=== PATIENT | male | born 1970 | race African-American/Black ===

== ENCOUNTER → 2018-01-02 | Outpatient (CLI) | payer BC ==
--- NOTE | 2018-01-02 16:37 | KCIC ---
Five view lumbar spine series: Clinical indications: Low back pain for one month. Findings: Minimal rotatory levoscoliosis is seen. No fracture of the transverse processes is seen.No compression fracture is evident.No spondylolisthesis is seen.No discitis or osteolytic process is seen.No radiolucent pars defect is seen.No significant facet arthropathy is seen. Mild degenerative endplate spurring is seen throughout the lumbar spine. Impression: Mild degenerative lumbar spondylosis. Electronically signed by: Jh Phillips MD (01/02/2018 4:33 PM) [id number]
== END | disposition home or self-care (01) ==
LOC: KCIC 14:50
PROVIDERS: ATTEND Family Medicine
DX: M47.896 Other spondylosis, lumbar region (principal); M41.86 Other forms of scoliosis, lumbar region; M46.06 Spinal enthesopathy, lumbar region
CPT/HCPCS: 72110

== ENCOUNTER → 2018-10-04 | Outpatient (CLI) | payer BC ==
--- NOTE | 2018-10-04 13:47 | KCIC ---
DOPPLER CAROTID BILAT Clinical Indication: Dizziness. Hypertension.. Procedure: Pulsed wave and color-flow duplex imaging was utilized to evaluate the extracranial carotid arteries. Comparison: None. Findings: RIGHT SIDE: Mild atherosclerotic plaque on abbasi-scale images. Distal CCA peak systolic velocity 67 cm/sec. ICA peak systolic velocity 123 cm/sec. The right ICA/CCA ratio is 1.8. Flow within the right vertebral artery and right ECA is directed antegrade. LEFT SIDE: Mild atherosclerotic plaque on abbasi-scale images. Distal CCA peak systolic velocity 77 cm/sec. ICA peak systolic velocity 106 cm/sec. The left ICA/CCA ratio is 1.4. Flow within the left vertebral artery and left ECA is directed antegrade. Carotid legend: CCA = common carotid artery ICA = internal carotid artery ECA = external carotid artery IMPRESSION: Approximately 50 percent stenosis bilaterally. Electronically signed by: Danny Collado DO (10/04/2018 1:44 PM) [facility]
== END | disposition home or self-care (01) ==
LOC: KCIC US 12:14
PROVIDERS: ATTEND Family Medicine
DX: I65.23 Occlusion and stenosis of bilateral carotid arteries (principal); I10 Essential (primary) hypertension; E11.9 Type 2 diabetes mellitus without complications
CPT/HCPCS: 93880

== ENCOUNTER → 2019-10-16 | Outpatient (CLI) | payer BC ==
--- NOTE | 2019-10-16 16:36 | KCIC ---
PROCEDURE: KNEE RIGHT 3V CLINICAL INDICATION / HISTORY: Reason: ACUTE PAIN OF RT KNEE, FELT POP ANTERIORLY YESTERDAY GETTING OUT OF BED / Spl. Instructions: / History: . TECHNIQUE: AP, lateral, and tunnel views of the right knee. COMPARISON: None FINDINGS: The osseous structures are intact. The articular surfaces are notable for subtle undulation to the medial femoral condyle anteriorly. Otherwise they are smooth. The joint space is maintained. No intra-articular loose bodies. The alignment is within normal limits. The soft tissues are unremarkable. Trace joint effusion. No radio-opaque foreign bodies are identified. IMPRESSION: Findings suspicious for an impaction injury on the medial femoral condyle anteriorly with a trace right joint effusion. Consider correlation with MRI. Electronically signed by: Citlali Westbrook MD (10/16/2019 4:34 PM) [id number]
== END | disposition home or self-care (01) ==
LOC: KCIC 15:08
PROVIDERS: ATTEND Nurse Practitioner Gerontology
DX: M25.561 Pain in right knee (principal)
CPT/HCPCS: 73562

== ENCOUNTER → 2021-07-13 | Outpatient (CLI) | payer BC ==
--- NOTE | 2021-07-13 14:05 | KCIC ---
EXAMINATION: Magnetic resonance imaging (MRI) of the lumbar spine without contrast 07/13/2021 1:15 PM HISTORY: Acute left-sided low back pain TECHNIQUE: Multiplanar multi-weighted MRI of the lumbar spine was performed without intravenous contr ast using the standard lumbar spine protocol. Contrast information: None administered. COMPARISON: None available. FINDINGS: The alignment of the lumbar spine is normal. Vertebral bodies demonstrate normal signal intensity on all sequences. There are no compression fractures. The conus medullaris terminates at the level of L1. The distal spinal cord signal intensity is normal. Mild disc height loss at L2-L3 with Modic ty pe II endplate degenerative changes. There is disc desiccation at all levels of the lumbar spine spar ing the L4-L5. 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 Limited views of the abdomen and pelvis show no soft tissue abnormality. The aorta is normal. L1-L2: The disc is normal in configuration. There is no facet arthropathy. There is no neuroforaminal stenosis. There is no spinal canal stenosis. L2-L3: There is a disc bulge with left foraminal disc protrusion. No significant facet arthropathy. M oderate left and mild right neural foraminal stenosis. No significant spinal canal stenosis. L3-L4: There is a mild disc bulge. Mild facet arthropathy. No neuroforaminal or spinal canal stenosis . L4-L5: There is normal configuration of the disc. Mild facet arthropathy. No neuroforaminal or spinal canal stenosis. L5-S1: Mild disc bulge asymmetric to the right. Mild bilateral neuroforaminal stenosis. Mild facet ar thropathy. No or spinal canal stenosis. IMPRESSION: Mild degenerative changes of the lumbar spine as described in detail above. Electronically signed by: Sandie Crisostomo MD (07/13/2021 2:02 PM) [id number]
== END ==
LOC: KCIC MRI 12:55
PROVIDERS: ATTEND Nurse Practitioner
DX: M47.816 Spondylosis without myelopathy or radiculopathy, lumbar region (principal); M51.26 Other intervertebral disc displacement, lumbar region; M54.42 Lumbago with sciatica, left side; M48.07 Spinal stenosis, lumbosacral region; M48.8X7 Other specified spondylopathies, lumbosacral region; M51.27 Other intervertebral disc displacement, lumbosacral region
CPT/HCPCS: 72148